=== PATIENT | male | born 1975 | race Caucasian/White ===

== ENCOUNTER 2016-12-19 14:57 | Emergency (ER) | payer BC ==
[~2016-12-19] VITALS: Ht 185.4 cm; Wt 112.0 kg
[~2016-12-19 14:57] MED LIST: ADVAIR 500/501 DISK IH; CLINDAMYCIN HC300 MG PO; COUMADIN5 MG PO; ENDOCET 5-3251 EACH PO; FOLIC ACID1 MG PO; KEFLEX500 MG PO; LOVENOX100 MG/1 M SC; MEDROL DOSEPAK4 MG PO; MOTRIN600 MG PO; NOHOMEMEDS; PROTONIX40 MG PO; SPIRIVA1 INHALATI IH; VENTOLIN HFA18 GM IH; VITAMIN B-1100 MG PO; XARELTO15 MG PO; XARELTO20 MG PO
[2016-12-19 16:29] LABS: EOSINOPHIL (%) 2.9 % (0-5); EOSINOPHIL COUNT 0.3 K/uL (0-0.3); HEMATOCRIT 46.4 % (38.0-50.0); IMMATURE GRANULOCYTE (%) 1.2 % (0.0-0.7); IMMATURE GRANULOCYTE COUNT 0.1 K/uL; INSTRUMENT ABS NEUTROPHIL CT 6.6 K/uL; LYMPHOCYTE COUNT 1.2 K/uL (1.0-2.8); MCH 29.8 PG (29.0-34.0); MCV 90.3 FL (86-99); MEAN PLAT.VOLUME 10.4 uM^3 (9.0-12.4); MONOCYTE (%) 8.2 % (3-12); MONOCYTE COUNT 0.7 K/uL (0-0.8); NEUTROPHIL (%) 73.8 % (45-76); NEUTROPHIL COUNT 6.6 K/uL (1.8-6.4); PLATELET COUNT 227 K/uL (156-360); RBC DIS.WIDTH-CV 13.2 % (11.8-14.6); RBC DIS.WIDTH-SD 43.4 % (39-53); RED BLOOD COUNT 5.14 M/uL (4.00-5.50)
[2016-12-19 16:36] LABS: PROTHROMBIN TIME 10.5 SEC (10.2-12.9)
[2016-12-19 16:38] LABS: CHLORIDE 106 mEq/L (99-109); D-DIMER ELISA < 150.00 ng/mLDDU (<230); POTASSIUM 3.6 mEq/L (3.7-5.4); PTT 25.6 SEC (25-37); SODIUM 139 mEq/L (136-147)
[2016-12-19 16:39] LABS: GLUCOSE 113 mg/dL (70-99)
[2016-12-19 16:41] LABS: ANION GAP 13 MEQ/L (2-14)
[2016-12-19 16:43] LABS: GFR ESTIMATE (CALCULATED) > 59 mL/min/
[2016-12-19 16:44] LABS: UREA NITROGEN (BUN) 10 mg/dL (9-23)
[2016-12-19] MEDS ORDERED: ADVAIR 500/501 DISK IH (18:46)
[2016-12-19 19:26] VITALS: BP 128/69
== END 2016-12-19 19:27 | disposition home or self-care (01) ==
LOC: EME 14:57
PROVIDERS: Physician Assistant
DX: J44.9 Chronic obstructive pulmonary disease, unspecified (principal); K21.9 Gastro-esophageal reflux disease without esophagitis; Z86.718 Personal history of other venous thrombosis and embolism; Z79.01 Long term (current) use of anticoagulants; F17.200 Nicotine dependence, unspecified, uncomplicated
CPT/HCPCS: 71020; 80048; 83880; 85025; 85379; 85610; 85730; 94640; 99281; 99284

== ENCOUNTER 2017-10-24 13:41 | Emergency (ER) | payer BC ==
[~2017-10-24] VITALS: Ht 185.4 cm; Wt 112.7 kg
[2017-10-24 15:29] VITALS: BP 118/84
== END 2017-10-24 15:31 | disposition home or self-care (01) ==
LOC: EME 13:41
DX: J02.0 Streptococcal pharyngitis (principal); F17.200 Nicotine dependence, unspecified, uncomplicated; J43.9 Emphysema, unspecified; J45.909 Unspecified asthma, uncomplicated; K21.9 Gastro-esophageal reflux disease without esophagitis; Z86.718 Personal history of other venous thrombosis and embolism; Z88.5 Allergy status to narcotic agent
CPT/HCPCS: 87651 90; 99281; 99284; J0561; J1100